=== PATIENT | female | born 1975 | race Caucasian/White ===

== ENCOUNTER 2016-08-20 14:19 | Emergency (ER) | payer BC, OTHER ==
[~2016-08-20] VITALS: Ht 160 cm; Wt 66.0 kg
[~2016-08-20 14:19] MED LIST: CIPR-255 PO; KETO2SHA EXT
[2016-08-20 14:25] VITALS: TEMP 36.8; Ht 160 cm; Wt 66.0 kg
[2016-08-20] MEDS ORDERED: SODIUM CHLORIDE 0.9% 1000ML 1,000 ML IV STA (14:36)
[2016-08-20] MEDS ORDERED: ONDANSETRON INJ 2 MG/ML 2 ML VIAL IV STA (14:36)
[2016-08-20] MEDS ORDERED: MoRPHine SULFATE 4 MG/ML 1 ML CARP\\VIAL IV STA (14:53)
[2016-08-20 14:54] LABS: BASO % 0.2 %; BASO ABS # 0.02 K/uL (0-0.2); COMPLETE YES; EOS % 0.8 %; HEMATOCRIT 39.9 % (37-47); IG% 0.2 %; LYMPH % 19.5 %; MEAN CELL VOLUME 89.1 fL (80-100); MEAN CORPUSCULAR HEMOGLOBIN 30.4 pg (25-34); MEAN CORPUSCULAR HGB CONC 34.1 g/dl (32-36); MEAN PLATELET VOLUME 10.6 fL (7.4-10.4); MONO % 7.4 %; NEUT % 71.9 %; PLATELET COUNT 255 K/uL (130-400); RED BLOOD COUNT 4.48 M/uL (4.2-5.4); WHITE BLOOD COUNT 12.32 K/uL (4.8-10.8)
[2016-08-20] MEDS ORDERED: MULT-506 PO (15:01)
[2016-08-20 15:09] LABS: PARTIAL THROMBOPLASTIN RATIO 1.1; PROTHROMBIN TIME (PATIENT) 10.2 SECONDS (9.0-12.0)
[2016-08-20 15:11] LABS: BUN/CREATININE RATIO 14.4 (10-20); CALCIUM 9.4 mg/dl (8.5-10.1); CREATININE 1.1 mg/dl (0.60-1.20); POTASSIUM 3.5 mmol/L (3.5-5.1)
[2016-08-20] MEDS ORDERED: LISI-461 PO (15:13)
[2016-08-20] MEDS ORDERED: CETI10TA84 PO (15:13)
[2016-08-20] MEDS ORDERED: HYDR12.56 PO (15:13)
[2016-08-20] MEDS ORDERED: OPTIRAY 320 IV PRN (15:15)
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
[2016-08-20 15:59] LABS: URINE APPEARANCE CLEAR (CLEAR); URINE BILIRUBIN NEG (NEG); URINE COLOR ORANGE; URINE NITRITE NEG (NEG); URINE SPECIFIC GRAVITY 1.012 (1.000-1.030); UROBILINOGEN NEG (NEG); ZZUR CULT IF INDIC CLEAN CATCH NO
[2016-08-20 16:09] LABS: MANUAL MICROSCOPIC REQUIRED? NO; REVIEW REQ? NO
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
[2016-08-20] MEDS ORDERED: KETOROLAC TROMETHAMINE 30 MG/ML VIAL IV STA (16:44)
[2016-08-20] MEDS ORDERED: CYCL10TA6 PO (16:51)
[2016-08-20 16:52] VITALS: PULSE 83; O2SAT 94
[2016-08-20 17:41] VITALS: BP 148/101
== END 2016-08-20 17:57 | disposition home or self-care (01) ==
LOC: EDBD 14:19 → C.EDD 14:23
DX: S09.90XA Unspecified injury of head, initial encounter (principal); S16.1XXA Strain of muscle, fascia and tendon at neck level, initial encounter; S30.1XXA Contusion of abdominal wall, initial encounter; V43.52XA Car driver injured in collision with other type car in traffic accident, initial encounter; J45.909 Unspecified asthma, uncomplicated; E11.9 Type 2 diabetes mellitus without complications; I10 Essential (primary) hypertension; Z80.9 Family history of malignant neoplasm, unspecified; Z83.3 Family history of diabetes mellitus; Z82.49 Family history of ischemic heart disease and other diseases of the circulatory system; Z79.899 Other long term (current) drug therapy

== ENCOUNTER 2016-12-07 13:39 | Emergency (ER) | payer OTHER ==
[~2016-12-07] VITALS: Ht 160 cm; Wt 68.6 kg
[~2016-12-07 13:39] MED LIST changes: -AMOX875T PO; -AZIT250T PO; -TRAM-10 PO
[2016-12-07 13:46] VITALS: TEMP 37.6; Ht 160 cm; Wt 68.6 kg
[2016-12-07] MEDS ORDERED: SODIUM CHLORIDE 0.9% 1000ML 1,000 ML IV STA ×2 (14:13→16:15)
[2016-12-07] MEDS ORDERED: MoRPHine SULFATE 4 MG/ML 1 ML CARP\\VIAL IV STA (14:13)
--- NOTE | 2016-12-07 14:18 | EMERGENCY ROOM VISIT NOTE ---
History Report prepared by Codi: Christy Porter Under the Supervision of: Dr. Edson Dumont M.D. First contact with patient: 13:51 Chief Complaint: ILLNESS Stated Complaint: PNEUMONIA WORSENING History of Present Illness The patient is a 41 year old white female who presents to the Emergency Room with complaints of a progressively worsening illness that began one week ago. She currently rates her discomfort as an 8/10 in severity describing it as a sharp pain. The patient reports a recent endoscopy, noting a history of EOE. She states that since then she has noticed a low-grade fever and a nonproductive cough. The patient states that today she had a chest x-ray that revealed a pneumonia. She states that she has noticed back pain, but now reports central chest pain. The patient reports difficulty swallowing and an increased cough since the procedure. She denies any congestion or sore throat. The patient reports a history of hypertension that is managed with medications. Source of History: patient Onset: one week ago Position: other (global) Symptom Intensity: 8/10 Quality: other (illness) Timing: other (persistent) Associated Symptoms: + fevers, + headache, + cough, + chest pain, + back pain, No sorethroat Note: Associated Symptoms: difficulty swallowing Review of Systems See HPI for pertinent positives and negatives. A total of ten systems were reviewed and were otherwise negative. Past Medical & Surgical Medical Problems: (1) Asthma, Unspecified (2) Diabetes (3) Hypertension Nos Family History Cancer Diabetes mellitus Heart disease Hypertension Lung disease Social History Smoking Status: Never Smoker Alcohol Use: occasionally Marital Status: Housing Status: lives with family Occupation Status: employed Current/Historical Medications Scheduled Amoxicillin & Pot Clavulanate (Augmentin 875-125 mg), 1 TAB PO BID Azithromycin (Zithromax), 250 MG PO DAILY Cetirizine (Zyrtec), 10 MG PO HS Hydrochlorothiazide (Hctz), 12.5 MG PO DAILY Lisinopril (Lisinopril), 10 MG PO DAILY Multivitamin (Multivitamin), 1 TAB PO DAILY Scheduled PRN Tramadol (Ultram), 50 MG PO Q4H PRN for Pain Allergies Coded Allergies: Aminoglycosides (Verified Allergy, Mild, HIVES, 04/12/12) Bacitracin (Verified Allergy, Mild, HIVES, 04/12/12) Neomycin (Verified Allergy, Mild, HIVES, 04/12/12) Polymyxin B (Verified Allergy, Mild, HIVES, 04/12/12) Prednisone (Verified Allergy, Unknown, THROAT SWELLS, 08/19/15) Physical Exam Vital Signs Date Time Temp Pulse Resp B/P (MAP) Pulse Ox O2 Delivery O2 Flow Rate FiO2 12/07/16 17:41 76 20 138/78 96 12/07/16 15:48 100 18 140/93 100 Room Air 12/07/16 14:38 98 Room Air 12/07/16 13:46 37.6 109 20 138/68 98 Room Air Physical Exam GENERAL: Awake, alert, well-appearing, NAD HENT: Normocephalic, atraumatic. EYES: Normal conjunctiva. Sclera non-icteric. NECK: Supple. No nuchal rigidity. FROM. RESPIRATORY: CTAB, no rhonchi, wheezing, crackles CARDIAC: Mild tachycardia, but regular rhythm, no MRG ABDOMEN: Soft, NTND, BS+ MSK: No chest wall TTP, no crepitus over the chest, no LE edema, no calf pain. NEURO: GCS 15, CN 2-12 intact, moves all 4s on command SKIN: No rash or jaundice noted. Medical Decision & Procedures ER Provider Diagnostic Interpretation: Radiology results as stated below per my review and radiologist interpretation: CHEST 2 VIEWS ROUTINE CLINICAL HISTORY: Fever. Recent EGD. COMPARISON STUDY: 12/07/2016 FINDINGS: The cardiac and mediastinal contours remain stable. There is a persistent area of consolidation within the right upper lobe. This is consistent with a pneumonia. There is been no significant change. The left lung is clear. There is no failure. There are no pleural effusions. There is no free intraperitoneal air.[ IMPRESSION: Persistent area of parenchymal consolidation within the right upper lobe, suspicious for a pneumonia. Imaging subsequent to treatment is recommended to document resolution Electronically signed by: Ian Chapin M.D. 12/07/2016 3:49 PM Dictated Date/Time: 12/07/2016 3:47 PM ABDOMEN 2 VIEWS CLINICAL HISTORY: 41 years-old Female presenting with recent EGD. TECHNIQUE: Upright and supine views of the abdomen were obtained. COMPARISON: CT from 08/20/2016. FINDINGS: No calcifications project over the kidneys or along the courses of the ureters. Mild gaseous distention of small bowel, likely postprocedural. No evidence of free intraperitoneal gas, pneumatosis, or portal venous gas. Lung bases clear. Osseous structures normal. IMPRESSION: 1. No acute intra-abdominal pathology. Electronically signed by: Cr Sorto M.D. 12/07/2016 3:49 PM Dictated Date/Time: 12/07/2016 3:48 PM Laboratory Results 12/07/16 14:23 Red Blood Count 3.99, Mean Corpuscular Volume 91.7, Mean Corpuscular Hemoglobin 31.8, Mean Corpuscular Hemoglobin Concent 34.7, Mean Platelet Volume 10.1, Neutrophils (%) (Auto) 73.0, Lymphocytes (%) (Auto) 13.0, Monocytes (%) (Auto) 13.0, Eosinophils (%) (Auto) 0.4, Basophils (%) (Auto) 0.3, Neutrophils # (Auto ) 5.40, Lymphocytes # (Auto) 0.96, Monocytes # (Auto) 0.96, Eosinophils # (Auto ) 0.03, Basophils # (Auto) 0.02 12/07/16 14:23 Test 12/07/16 14:23 12/07/16 15:02 12/07/16 15:14 White Blood Count 7.39 K/uL (4.8-10.8) Red Blood Count 3.99 M/uL (4.2-5.4) Hemoglobin 12.7 g/dL (12.0-16.0) Hematocrit 36.6 % (37-47) Mean Corpuscular Volume 91.7 fL (80-100) Mean Corpuscular Hemoglobin 31.8 pg (25-34) Mean Corpuscular Hemoglobin Concent 34.7 g/dl (32-36) Platelet Count 225 K/uL (130-400) Mean Platelet Volume 10.1 fL (7.4-10.4) Neutrophils (%) (Auto) 73.0 % Lymphocytes (%) (Auto) 13.0 % Monocytes (%) (Auto) 13.0 % Eosinophils (%) (Auto) 0.4 % Basophils (%) (Auto) 0.3 % Neutrophils # (Auto) 5.40 K/uL (1.4-6.5) Lymphocytes # (Auto) 0.96 K/uL (1.2-3.4) Monocytes # (Auto) 0.96 K/uL (0.11-0.59) Eosinophils # (Auto) 0.03 K/uL (0-0.5) Basophils # (Auto) 0.02 K/uL (0-0.2) RDW Standard Deviation 43.8 fL (36.4-46.3) RDW Coefficient of Variation 12.9 % (11.5-14.5) Immature Granulocyte % (Auto) 0.3 % Immature Granulocyte # (Auto) 0.02 K/uL (0.00-0.02) Anion Gap 7.0 mmol/L (3-11) Est Creatinine Clear Calc Drug Dose 93.0 ml/min Estimated GFR () 116.6 Estimated GFR (Non- 100.6 BUN/Creatinine Ratio 14.6 (10-20) Calcium Level 9.5 mg/dl (8.5-10.1) Total Bilirubin 0.3 mg/dl (0.2-1) Direct Bilirubin < 0.1 mg/dl (0-0.2) Aspartate Amino Transf (AST/SGOT) 22 U/L (15-37) Alanine Aminotransferase (ALT/SGPT) 34 U/L (12-78) Alkaline Phosphatase 91 U/L (45-117) Total Protein 8.6 gm/dl (6.4-8.2) Albumin 3.9 gm/dl (3.4-5.0) Lipase 154 U/L (73-393) Venous Blood pH 7.45 (7.36-7.41) Venous Blood Partial Pressure CO2 44 mmHg (38.0-50.0) Venous Blood Partial Pressure O2 19 mmHg Venous Blood HCO3 30 mmol/L Venous Blood Oxygen Saturation < 60.0 % Venous Blood Base Excess 5.0 mEq/L Bedside Lactic Acid Venous 0.78 mmol/L (0.90-1.70) Laboratory results reviewed by me Medications Administered Medications (Trade) Dose Ordered Sig/Oren Route Start Time Stop Time Status Last Admin Dose Admin Morphine Sulfate (MoRPHine SULFATE INJ) 4 mg NOW STAT IV 12/07/16 14:13 12/07/16 14:16 DC 12/07/16 15:14 4 MG Sodium Chloride 1,000 ml @ 999 mls/hr Q1H1M STAT IV 12/07/16 14:13 12/07/16 15:13 DC 12/07/16 15:14 999 MLS/HR Sodium Chloride 1,000 ml @ 999 mls/hr Q1H1M STAT IV 12/07/16 16:15 12/07/16 17:15 DC 12/07/16 16:20 999 MLS/HR Amoxicillin/ Clavulanate Potassium (Augmentin Tab) 875 mg ONE STAT PO 12/07/16 16:15 12/07/16 16:17 DC 12/07/16 16:24 875 MG Azithromycin (Zithromax Tab) 500 mg NOW ONCE PO 12/07/16 16:15 12/07/16 16:17 DC 12/07/16 16:24 500 MG ECG Indication: chest pain, SOB/dyspnea Rate (beats per minute): 101 Rhythm: sinus tachycardia Findings: Q waves (Inferior, lead 3), other (normal intervals, contiguous, no other ST-S changes) ED Course 1358: The patient was evaluated in room C8. A complete history and physical exam was performed. 1601: I reevaluated the patient and she is resting comfortably. I discussed the exam findings with her and I discussed the treatment plan. She verbalized complete understanding and agreement. She is ready to go home. Medical Decision Triage Nursing notes reviewed. The patient's presentation and history were concerning for bronchitis, pneumonia , aspiration, esophageal tear, perforation, mediastinitis. The patient is a 41 year old white female who presents to the Emergency Room with complaints of a progressively worsening illness that began one week ago. Patient was complaining of some mild shortness of breath chest pain as well as cough. Patient was noted to have a chest x-ray concerning for pneumonia. Patient was mildly tachycardic. Patient did have a recent EGD procedure was completed. Patient was evaluated with blood work in addition to chest x-ray and abdomen. Patient's lab work was fairly unremarkable. Patient EKG without signs of acute ischemic change. Furthermore, patient had negative films of the abdomen but still had a right upper lobe pneumonia. Given that the patient may have aspirated versus community-acquired pneumonia patient was treated with both Augmentin as well as Zithromax. Patient received additional fluids and her tachycardia improved. Believe infectious etiology of her tachycardia did be more likely rather than PE. We did discuss that if the patient has worsening shortness of breath or worsening symptoms patient should return for further evaluation. Patient tolerated by mouth at the bedside. Her improved. Patient was told to follow up as an outpatient. Patient was instructed follow- up discharge, and return precautions. Patient agreeable with plan of care patient was discharged home. Medication Reconcilliation Current Medication List: was personally reviewed by me Blood Pressure Screening Patient's blood pressure: Elevated blood pressure Blood pressure disposition: Elevated BP felt to be situational, Did not require urgent referral Impression Primary Impression: Pneumonia Additional Impressions: Chest pain SOB (shortness of breath) Scribe Attestation The scribe's documentation has been prepared under my direction and personally reviewed by me in its entirety. I confirm that the note above accurately reflects all work, treatment, procedures, and medical decision making performed by me. Departure Information Dispostion Home / Self-Care Prescriptions Tramadol (Ultram) 50 Mg Tab 50 MG PO Q4H Y for Pain, #14 TAB Prov: Edson Dumont M.D. 12/07/16 Azithromycin (Zithromax) 250 Mg Tab 250 MG PO DAILY, #4 TAB Prov: Edson Dumont M.D. 12/07/16 Amoxicillin & Pot Clavulanate (Augmentin 875-125 mg) 1 Tab Tab 1 TAB PO BID, #14 TAB Prov: Edson Dumont M.D. 12/07/16 Referrals No Doctor, Assigned (PCP) Forms HOME CARE DOCUMENTATION FORM, IMPORTANT VISIT INFORMATION, WORK / SCHOOL INSTRUCTIONS Patient Instructions Coughing Techniques, ED Pneumonia Adult, My [facility], Techniques Cough Airway Clear Additional Instructions Please return to the emergency department if you have worsening or recurrent symptoms not amenable to at-home treatment. Please call for a follow-up appointment with her primary care physician. Please your medications as prescribed. If you have other concerns and/or complaints please feel free to also call your primary care physician's office or return the ED for further evaluation, management, and treatment. Between 4 and 800 mg of ibuprofen every 6 hours but no more than 3200 mg in a 24 -hour period. Please take with food as it may cause an upset stomach. He may take 1000 mg of Tylenol or acetaminophen every 6 hours. Do not take more than 4 g in a 24-hour period. Work Instructions Return To Work: 2 days Specific Date: 12/09/16 Problem Qualifiers Primary Impression: Pneumonia Pneumonia type: due to unspecified organism Laterality: right Lung location : upper lobe of lung Qualified Codes: J18.1 - Lobar pneumonia, unspecified organism Additional Impressions: Chest pain Chest pain type: unspecified Qualified Codes: R07.9 - Chest pain, unspecified
[2016-12-07 14:29] LABS: BASO % 0.3 %; BASO ABS # 0.02 K/uL (0-0.2); COMPLETE YES; EOS % 0.4 %; HEMATOCRIT 36.6 % (37-47); IG% 0.3 %; LYMPH ABS # 0.96 K/uL (1.2-3.4); MEAN CELL VOLUME 91.7 fL (80-100); MEAN CORPUSCULAR HEMOGLOBIN 31.8 pg (25-34); MEAN CORPUSCULAR HGB CONC 34.7 g/dl (32-36); MEAN PLATELET VOLUME 10.1 fL (7.4-10.4); PLATELET COUNT 225 K/uL (130-400); RED BLOOD COUNT 3.99 M/uL (4.2-5.4); WHITE BLOOD COUNT 7.39 K/uL (4.8-10.8)
[2016-12-07 14:37] LABS: ALT/SGPT 34 U/L (12-78); BLOOD UREA NITROGEN 11 mg/dl (7-18); BUN/CREATININE RATIO 14.6 (10-20); CALCIUM 9.5 mg/dl (8.5-10.1); CARBON DIOXIDE 28 mmol/L (21-32); CHLORIDE 100 mmol/L (98-107); CREATININE 0.74 mg/dl (0.60-1.20); GLUCOSE 102 mg/dl (70-99); POTASSIUM 3.5 mmol/L (3.5-5.1); SODIUM 135 mmol/L (136-145)
[2016-12-07 14:38] VITALS: O2SAT 98
[2016-12-07 14:40] LABS: ALKALINE PHOSPHATASE 91 U/L (45-117); AST/SGOT 22 U/L (15-37)
[2016-12-07 15:13] LABS: VEN BLD GAS O2 SATURATION < 60.0 %; VENOUS BLOOD GAS PCO2 44 mmHg (38.0-50.0); VENOUS BLOOD GAS PO2 19 mmHg
--- NOTE | 2016-12-07 15:50 | DIAGNOSTIC IMAGING REPORT ---
CHEST 2 VIEWS ROUTINE CLINICAL HISTORY: Fever. Recent EGD. COMPARISON STUDY: 12/07/2016 FINDINGS: The cardiac and mediastinal contours remain stable. There is a persistent area of consolidation within the right upper lobe. This is consistent with a pneumonia. There is been no significant change. The left lung is clear. There is no failure. There are no pleural effusions. There is no free intraperitoneal air.[ IMPRESSION: Persistent area of parenchymal consolidation within the right upper lobe, suspicious for a pneumonia. Imaging subsequent to treatment is recommended to document resolution Electronically signed by: Ian Chapin M.D. 12/07/2016 3:49 PM Dictated Date/Time: 12/07/2016 3:47 PM
--- NOTE | 2016-12-07 15:51 | DIAGNOSTIC IMAGING REPORT ---
ABDOMEN 2 VIEWS CLINICAL HISTORY: 41 years-old Female presenting with recent EGD. TECHNIQUE: Upright and supine views of the abdomen were obtained. COMPARISON: CT from 08/20/2016. FINDINGS: No calcifications project over the kidneys or along the courses of the ureters. Mild gaseous distention of small bowel, likely postprocedural. No evidence of free intraperitoneal gas, pneumatosis, or portal venous gas. Lung bases clear. Osseous structures normal. IMPRESSION: 1. No acute intra-abdominal pathology. Electronically signed by: Cr Sorto M.D. 12/07/2016 3:49 PM Dictated Date/Time: 12/07/2016 3:48 PM
[2016-12-07] MEDS ORDERED: AZITHROMYCIN 250 MG TAB PO ONE (16:15)
[2016-12-07] MEDS ORDERED: AMOXICILLIN/CLAVULANATE TAB 875 MG TAB PO STA (16:15)
[2016-12-07] MEDS ORDERED: TRAM-10 PO (16:21)
[2016-12-07] MEDS ORDERED: AMOX875T PO (16:21)
[2016-12-07] MEDS ORDERED: AZIT250T PO (16:21)
[2016-12-07 17:41] VITALS: BP 138/78; PULSE 76; O2SAT 96
== END 2016-12-07 17:46 | disposition home or self-care (01) ==
LOC: C.EDB 13:42 → C.EDC 17:46
DX: J18.1 Lobar pneumonia, unspecified organism (principal); R07.9 Chest pain, unspecified; R00.0 Tachycardia, unspecified; M54.9 Dorsalgia, unspecified; I10 Essential (primary) hypertension; E11.9 Type 2 diabetes mellitus without complications; J45.909 Unspecified asthma, uncomplicated; Z79.899 Other long term (current) drug therapy; Z82.49 Family history of ischemic heart disease and other diseases of the circulatory system; Z83.3 Family history of diabetes mellitus; Z83.6 Family history of other diseases of the respiratory system

== ENCOUNTER → 2016-12-07 | Outpatient (CLI) | payer OTHER ==
[~2016-12-07] MED LIST changes: +AMOX875T PO; +AZIT250T PO; +CETI10TA84 PO; -CIPR-255 PO; +HYDR12.56 PO; -KETO2SHA EXT; +LISI-461 PO; +MULT-506 PO; +TRAM-10 PO
--- NOTE | 2016-12-07 09:25 | DIAGNOSTIC IMAGING REPORT ---
CHEST 2 VIEWS ROUTINE HISTORY: Atypical CHEST PAIN, S/P ESOPH DILATION COMPARISON: Chest 10/16/2015. FINDINGS: No pneumothorax. The heart is normal in size. The left lung is clear. No pleural effusions. There is a 7.1 x 2.8 cm focus of consolidation within the anterior segment of the right upper lobe. This measures a small focus of central cavitation. IMPRESSION: A 7.1 x 2.8 cm cavitary focus within the right upper lobe. This could be due to an infectious process possibly secondary to aspiration, tuberculosis, or neoplastic process. Follow-up is recommended to ensure resolution. Pulmonary consultation should also be considered. Electronically signed by: Rodolfo Barlow M.D. 12/07/2016 9:24 AM Dictated Date/Time: 12/07/2016 9:20 AM
== END | disposition home or self-care (01) ==
LOC: C.RAD 08:51
PROVIDERS: ATTEND Internal Medicine Gastroenterology
DX: R07.9 Chest pain, unspecified (principal); R91.8 Other nonspecific abnormal finding of lung field

== ENCOUNTER 2016-12-08 18:54 | Emergency (ER) | payer OTHER ==
[~2016-12-08] VITALS: Ht 160 cm; Wt 71.3 kg
[~2016-12-08 18:54] MED LIST changes: +AMOX875T PO; +AZIT250T PO; +TRAM-10 PO
[2016-12-08 18:59] VITALS: TEMP 37.3; Ht 160 cm; Wt 71.3 kg
[2016-12-08] MEDS ORDERED: PIPERACILLIN/TAZOBACTAM 3.375 GM/100ML D5W IV STA (19:46)
[2016-12-08] MEDS ORDERED: OPTIRAY 320 IV PRN (20:00)
[2016-12-08 20:34] LABS: BASO % 0.3 %; BASO ABS # 0.02 K/uL (0-0.2); COMPLETE YES; EOS % 1.4 %; HEMATOCRIT 33.6 % (37-47); IG% 0.2 %; LYMPH % 21.7 %; LYMPH ABS # 1.28 K/uL (1.2-3.4); MEAN CELL VOLUME 91.6 fL (80-100); MEAN CORPUSCULAR HEMOGLOBIN 31.1 pg (25-34); MEAN CORPUSCULAR HGB CONC 33.9 g/dl (32-36); MONO % 12.9 %; NEUT % 63.5 %; PLATELET COUNT 209 K/uL (130-400); RED BLOOD COUNT 3.67 M/uL (4.2-5.4)
[2016-12-08 20:41] LABS: INR 0.9 (0.9-1.1); PARTIAL THROMBOPLASTIN RATIO 1.2; PROTHROMBIN TIME (PATIENT) 9.9 SECONDS (9.0-12.0)
[2016-12-08 20:48] VITALS: O2SAT 97
[2016-12-08 20:53] LABS: ALT/SGPT 29 U/L (12-78); AST/SGOT 18 U/L (15-37); BLOOD UREA NITROGEN 10 mg/dl (7-18); BUN/CREATININE RATIO 12.9 (10-20); CALCIUM 8.7 mg/dl (8.5-10.1); CARBON DIOXIDE 27 mmol/L (21-32); CHLORIDE 107 mmol/L (98-107); CREATININE 0.81 mg/dl (0.60-1.20); GLUCOSE 103 mg/dl (70-99); POTASSIUM 3.8 mmol/L (3.5-5.1); SODIUM 139 mmol/L (136-145)
[2016-12-08 20:58] LABS: ALKALINE PHOSPHATASE 78 U/L (45-117)
--- NOTE | 2016-12-08 21:42 | DIAGNOSTIC IMAGING REPORT ---
CHEST CTA for PULMONARY ARTERIES CT DOSE: 357.14 mGy.cm HISTORY: Atypical chest pain. TECHNIQUE: Multiaxial CT images of the chest were performed following the intravenous administration of contrast to evaluate the pulmonary arteries. Maximal intensity projection images were also obtained. A dose lowering technique was utilized adhering to the principles of ALARA. COMPARISON STUDY: Chest 12/07/2016. Chest CT 08/20/2016. FINDINGS: Normal caliber thoracic aorta with no evidence for dissection. The heart is normal in size. Trace right pleural effusion. No filling defects within the pulmonary arteries to suggest pulmonary embolus. No pneumothorax. Small groundglass densities within the lung bases posteriorly. This favors mild dependent change. Dense consolidation within the lateral aspect of the right upper lobe with associated air bronchograms. This likely represents a pneumonia. The central airways are patent. No fractures within the visualized osseous structures. Bilateral breast augmentation. No significant mediastinal or hilar lymphadenopathy. The visualized liver, spleen, and adrenal glands are unremarkable. IMPRESSION: 1. No evidence for pulmonary embolus. 2. Trace right pleural effusion. 3. Focal consolidation within the right upper lobe with associated air bronchograms. This likely represents a pneumonia. One to 2 month chest x-ray follow-up is recommended to ensure resolution. Electronically signed by: Rodolfo Barlow M.D. 12/08/2016 9:41 PM Dictated Date/Time: 12/08/2016 9:31 PM
--- NOTE | 2016-12-08 22:30 | EMERGENCY ROOM VISIT NOTE ---
History Report prepared by Codi: Christy Porter Under the Supervision of: Dr. West Renteria D.O. First contact with patient: 19:36 Chief Complaint: FEVER Stated Complaint: FEVER History of Present Illness The patient is a 41 year old female who presents to the Emergency Room with complaints of a persistent fever that began a week and a half ago. She currently rates her discomfort as a 6/10 in severity. The patient states that last Tuesday she had an EGD and states that the next day she developed a low- grade fever. She states that Tuesday her fever worsened, and states that she developed a persistent cough. The patient additionally notes that she developed a sharp back pain, but states that the pain radiated to her chest and denies any current back pain. She states that she has been experiencing shortness of breath. The patient states that she was evaluated in the emergency department yesterday after she was diagnosed with pneumonia earlier in the morning. She states that her cough worsens with lying flat. The patient states that she has been taking Ibuprofen all day, noting that her last dose was at 1645. She states that she has measured her fever up to 102.5 degrees Fahrenheit. The patient states that her headache is worse today than what it was yesterday. She states that her cough, shortness of breath, and central chest pain have persisted. The patient additionally reports diaphoresis today. She states that she took Tramadol for chest pain this afternoon that did not alleviate her pain. Source of History: patient Onset: a week and a half ago Position: other (global) Symptom Intensity: 6/10 Quality: other (fever) Timing: other (persistent) Associated Symptoms: + headache, + diaphoresis, + cough, + chest pain, + SOB , No back pain Review of Systems See HPI for pertinent positives & negatives. A total of 10 systems reviewed and were otherwise negative. Past Medical & Surgical Medical Problems: (1) Asthma, Unspecified (2) Diabetes (3) Hypertension Nos Family History Cancer Diabetes mellitus Heart disease Hypertension Lung disease Social History Smoking Status: Former Smoker Alcohol Use: occasionally Marital Status: Housing Status: lives with family Occupation Status: employed Current/Historical Medications Scheduled Amoxicillin & Pot Clavulanate (Augmentin 875-125 mg), 1 TAB PO BID Azithromycin (Zithromax), 250 MG PO DAILY Cetirizine (Zyrtec), 10 MG PO HS Hydrochlorothiazide (Hctz), 12.5 MG PO DAILY Lisinopril (Lisinopril), 10 MG PO DAILY Multivitamin (Multivitamin), 1 TAB PO DAILY Scheduled PRN Tramadol (Ultram), 50 MG PO Q4H PRN for Pain Allergies Coded Allergies: Aminoglycosides (Verified Allergy, Mild, HIVES, 12/08/16) Bacitracin (Verified Allergy, Mild, HIVES, 12/08/16) Neomycin (Verified Allergy, Mild, HIVES, 12/08/16) Polymyxin B (Verified Allergy, Mild, HIVES, 12/08/16) Prednisone (Verified Allergy, Unknown, THROAT SWELLS, 12/08/16) Physical Exam Vital Signs Date Time Temp Pulse Resp B/P (MAP) Pulse Ox O2 Delivery O2 Flow Rate FiO2 12/08/16 22:50 89 18 130/89 100 12/08/16 20:48 97 Room Air 12/08/16 20:47 90 18 126/91 97 Room Air 12/08/16 20:38 93 12/08/16 18:59 37.3 97 20 144/88 96 Room Air Physical Exam CONSTITUTIONAL/VITAL SIGNS: Reviewed / noted above. GENERAL: Non-toxic in appearance. INTEGUMENTARY: Warm, dry, and [place]. HEAD: Normocephalic. EYES: without scleral icterus or trauma. ENT/OROPHARYNX: clear and moist. LYMPHADENOPATHY/NECK: Is supple without lymphadenopathy or meningismus. RESPIRATORY: Lungs clear and equal. CARDIOVASCULAR: Regular rate and rhythm. GI/ABDOMEN: Soft and nontender. No organomegaly or pulsatile mass. No rebound or guarding. Normal bowel sounds. EXTREMITIES: Warm and well perfused. BACK: No CVA tenderness. NEUROLOGICAL: Intact without focal deficits. PSYCHIATRIC: normal affect. MUSCULOSKELETAL: Normally developed with good muscle tone. Medical Decision & Procedures ER Provider Diagnostic Interpretation: CT results as stated below per my review and radiologist interpretation: CHEST CTA for PULMONARY ARTERIES CT DOSE: 357.14 mGy.cm HISTORY: Atypical chest pain. TECHNIQUE: Multiaxial CT images of the chest were performed following the intravenous administration of contrast to evaluate the pulmonary arteries. Maximal intensity projection images were also obtained. A dose lowering technique was utilized adhering to the principles of ALARA. COMPARISON STUDY: Chest 12/07/2016. Chest CT 08/20/2016. FINDINGS: Normal caliber thoracic aorta with no evidence for dissection. The heart is normal in size. Trace right pleural effusion. No filling defects within the pulmonary arteries to suggest pulmonary embolus. No pneumothorax. Small groundglass densities within the lung bases posteriorly. This favors mild dependent change. Dense consolidation within the lateral aspect of the right upper lobe with associated air bronchograms. This likely represents a pneumonia. The central airways are patent. No fractures within the visualized osseous structures. Bilateral breast augmentation. No significant mediastinal or hilar lymphadenopathy. The visualized liver, spleen, and adrenal glands are unremarkable. IMPRESSION: 1. No evidence for pulmonary embolus. 2. Trace right pleural effusion. 3. Focal consolidation within the right upper lobe with associated air bronchograms. This likely represents a pneumonia. One to 2 month chest x-ray follow-up is recommended to ensure resolution. Electronically signed by: Rodolfo Barlow M.D. 12/08/2016 9:41 PM Dictated Date/Time: 12/08/2016 9:31 PM Laboratory Results 12/08/16 20:13 Red Blood Count 3.67, Mean Corpuscular Volume 91.6, Mean Corpuscular Hemoglobin 31.1, Mean Corpuscular Hemoglobin Concent 33.9, Mean Platelet Volume 10.0, Neutrophils (%) (Auto) 63.5, Lymphocytes (%) (Auto) 21.7, Monocytes (%) (Auto) 12.9, Eosinophils (%) (Auto) 1.4, Basophils (%) (Auto) 0.3, Neutrophils # (Auto ) 3.75, Lymphocytes # (Auto) 1.28, Monocytes # (Auto) 0.76, Eosinophils # (Auto ) 0.08, Basophils # (Auto) 0.02 12/08/16 20:13 Test 12/08/16 20:13 White Blood Count 5.90 K/uL (4.8-10.8) Red Blood Count 3.67 M/uL (4.2-5.4) Hemoglobin 11.4 g/dL (12.0-16.0) Hematocrit 33.6 % (37-47) Mean Corpuscular Volume 91.6 fL (80-100) Mean Corpuscular Hemoglobin 31.1 pg (25-34) Mean Corpuscular Hemoglobin Concent 33.9 g/dl (32-36) Platelet Count 209 K/uL (130-400) Mean Platelet Volume 10.0 fL (7.4-10.4) Neutrophils (%) (Auto) 63.5 % Lymphocytes (%) (Auto) 21.7 % Monocytes (%) (Auto) 12.9 % Eosinophils (%) (Auto) 1.4 % Basophils (%) (Auto) 0.3 % Neutrophils # (Auto) 3.75 K/uL (1.4-6.5) Lymphocytes # (Auto) 1.28 K/uL (1.2-3.4) Monocytes # (Auto) 0.76 K/uL (0.11-0.59) Eosinophils # (Auto) 0.08 K/uL (0-0.5) Basophils # (Auto) 0.02 K/uL (0-0.2) RDW Standard Deviation 43.8 fL (36.4-46.3) RDW Coefficient of Variation 13.0 % (11.5-14.5) Immature Granulocyte % (Auto) 0.2 % Immature Granulocyte # (Auto) 0.01 K/uL (0.00-0.02) Prothrombin Time 9.9 SECONDS (9.0-12.0) Prothromb Time International Ratio 0.9 (0.9-1.1) Activated Partial Thromboplast Time 30.1 SECONDS (21.0-31.0) Partial Thromboplastin Ratio 1.2 Anion Gap 5.0 mmol/L (3-11) Est Creatinine Clear Calc Drug Dose 86.5 ml/min Estimated GFR () 104.6 Estimated GFR (Non- 90.2 BUN/Creatinine Ratio 12.9 (10-20) Calcium Level 8.7 mg/dl (8.5-10.1) Total Bilirubin 0.3 mg/dl (0.2-1) Direct Bilirubin < 0.1 mg/dl (0-0.2) Aspartate Amino Transf (AST/SGOT) 18 U/L (15-37) Alanine Aminotransferase (ALT/SGPT) 29 U/L (12-78) Alkaline Phosphatase 78 U/L (45-117) Total Creatine Kinase 113 U/L (26-192) Creatine Kinase MB < 0.5 ng/ml (0.5-3.6) Creatine Kinase MB Ratio (0-3.0) Troponin I 0.026 ng/ml (0-0.045) Total Protein 7.3 gm/dl (6.4-8.2) Albumin 3.2 gm/dl (3.4-5.0) Lipase 124 U/L (73-393) Laboratory results as stated above per my review. Medications Administered Medications (Trade) Dose Ordered Sig/Oren Route Start Time Stop Time Status Last Admin Dose Admin Piperacillin Sod/ Tazobactam Sod (Zosyn Iv) 3.375 gm NOW STAT IV 12/08/16 19:46 12/08/16 19:52 DC 12/08/16 20:44 3.375 GM ECG Indication: chest pain, SOB/dyspnea Rate (beats per minute): 92 Rhythm: normal sinus Findings: no acute ischemic change, no ectopy ED Course 1943: Previous medical records were reviewed. The patient was evaluated in room B6. A complete history and physical examination was performed. 1945: Ordered Zosyn IV 3.375 gm IV. 2232: I reevaluated the patient and she is doing well. I discussed all the exam findings with her and I discussed the treatment plan. She verbalized complete understanding and agreement. She is ready to go home. Medical Decision Differentials considered include acute myocardial infarction, acute coronary syndrome, myocarditis, pericarditis, pericardial effusions /tamponade, esophageal perforation, thoracic aortic dissection, pulmonary embolism, pneumonia, pneumothorax, pancreatitis, shingles, acute cholecystitis, and perforated abdominal viscus. This is a 41-year-old female who presents the ED with a chief complaint of continued fever and retrosternal chest pain as well as cough. The patient states that her symptoms started a week and a half ago. She was diagnosed with pneumonia yesterday. She was started on Zithromax and Augmentin. She states that she has not improved today. She came in for reevaluation. Her symptoms started after an EGD on November 29. Her main symptoms started on Tuesday with a fever and a cough. The patient's exam was unremarkable. She is no distress. Oxygen saturations are normal. She is afebrile. EKG shows a normal sinus rhythm. CBC and complete metabolic panel were normal. CT scan of the chest revealed a right upper lobe pneumonia. The patient was given IV Zosyn. She is felt to be stable for discharge and continued outpatient antibiotics. Medication Reconcilliation Current Medication List: was personally reviewed by me Blood Pressure Screening Patient's blood pressure: Normal blood pressure Blood pressure disposition: Did not require urgent referral Impression Primary Impression: Pneumonia Scribe Attestation The scribe's documentation has been prepared under my direction and personally reviewed by me in its entirety. I confirm that the note above accurately reflects all work, treatment, procedures, and medical decision making performed by me. Departure Information Dispostion Home / Self-Care Referrals Carlitos Ruiz D.O. (PCP) Forms HOME CARE DOCUMENTATION FORM, IMPORTANT VISIT INFORMATION Patient Instructions My [facility] Additional Instructions Continue antibiotics prescribed yesterday. Anticipate slow improvement of symptoms after at least 2-3 days worth of antibiotics. Continue Tylenol or Motrin as needed for pain and fever. Follow-up with your doctor in 2 or 3 days for recheck. Return for significant worsening or new symptoms.
[2016-12-08 22:50] VITALS: BP 130/89; PULSE 89; O2SAT 100
== END 2016-12-08 22:51 | disposition home or self-care (01) ==
LOC: C.EDB 18:56
DX: J18.9 Pneumonia, unspecified organism (principal); J45.909 Unspecified asthma, uncomplicated; E11.9 Type 2 diabetes mellitus without complications; I10 Essential (primary) hypertension; Z83.3 Family history of diabetes mellitus; Z82.49 Family history of ischemic heart disease and other diseases of the circulatory system; Z87.891 Personal history of nicotine dependence

== ENCOUNTER → 2017-04-05 | Outpatient (CLI) | payer OTHER ==
[~2017-04-05] MED LIST changes: -AMOX875T PO
--- NOTE | 2017-04-06 15:59 | MAMMOGRAPHY REPORT ---
BILATERAL DIGITAL SCREENING MAMMOGRAM TOMOSYNTHESIS WITH CAD: 04/05/2017 CLINICAL HISTORY: Routine screening. Patient reported intermittent focal pain in the right breast fo r several months during the screening examination. TECHNIQUE: Bilateral CC and MLO views of the breast with and without implant displacement views were obtained. Tomosynthesis was also performed on the implant displaced views. Current study was also evaluated with a Computer Aided Detection (CAD) system. COMPARISON: Comparison is made to exams dated: 04/01/2016 mammogram, 01/28/2015 mammogram - [facility], and 11/19/2011 mammogram - [facility]. BREAST COMPOSITION: The tissue of both breasts is heterogeneously dense, which may obscure small mas ses. FINDINGS: Bilateral subpectoral silicone implants are stable comparing to prior exams. A square-shap ed pain marker overlies the inferior right breast, denoting an area of pain pointed out by the patien t. There are benign-appearing calcifications near the periareolar surgical scars. No obvious new ma ss, architectural distortion or cluster of suspicious microcalcifications is seen. IMPRESSION: ACR BI-RADS CATEGORY 1: NEGATIVE 1. Stable bilateral mammograms, without mammographic evidence of malignancy. 2. However, the patient reported focal pain during this screening examination and standard of care i s mammogram plus ultrasound. Therefore, clinical follow-up is recommended and if this is a new sympt om, additional right breast targeted ultrasound is recommended. The patient will receive written notification of the results. Approximately 10% of breast cancers are not detected with mammography. A negative mammographic report should not delay biopsy if a clinically suggestive mass is present. Missy Oconnor M.D. ay/:04/05/2017 15:20:19 Interactive Multimedia Designer: Shahnaz ERICKSON(Kyung)(Kiet), [facility] letter sent: Normal 1/2 BI-RADS Code: ACR BI-RADS Category 1: Negative
== END | disposition home or self-care (01) ==
LOC: C.MAMM 07:53
PROVIDERS: ATTEND Obstetrics & Gynecology
DX: Z12.31 Encounter for screening mammogram for malignant neoplasm of breast (principal)

== ENCOUNTER → 2017-05-16 | Day surgery (SDC) | payer OTHER ==
[2017-05-12 14:21] VITALS: BMI 27.0
--- NOTE | 2017-05-12 14:53 | PAT Medication Instructions ---
Service Date May 12, 2017. Current Home Medication List Acetaminophen Tab (Tylenol), 650 MG PO PRN Cetirizine (Zyrtec), 10 MG PO HS Hydrochlorothiazide (Hctz), 12.5 MG PO QAM Ibuprofen (Advil), 400 MG PO PRN Lisinopril (Lisinopril), 10 MG PO QAM Multivitamin (Multivitamin), 1 TAB PO QAM Omeprazole (Omeprazole), 1 TAB PO QAM Vitamins C & E (Vitamin C), 1 TAB PO QAM [Black Radish], 1 TAB PO QAM [Simplex Otc], 1 TAB PO QAM [Thymex], 1 TAB PO QAM [Vitamin B], 1 TAB PO QAM Medication Instructions For Your Scheduled Surgery - Hold the following medications as f 05/12/17: [Black Radish], 1 TAB PO QAM [Simplex Otc], 1 TAB PO QAM [Thymex], 1 TAB PO QAM - Hold the following medications the morning of surgery: Hydrochlorothiazide (Hctz), 12.5 MG PO QAM Lisinopril (Lisinopril), 10 MG PO QAM Multivitamin (Multivitamin), 1 TAB PO QAM Ibuprofen (Advil), 400 MG PO PRN (otherwise okay to continue per surgeon) [Vitamin B], 1 TAB PO QAM Vitamins C (Vitamin C), 1 TAB PO QAM - Take the following medications the morning of surgery with a sip of water OTHERWISE NOTHING TO EAT OR DRINK AFTER MIDNIGHT: Acetaminophen Tab (Tylenol), 650 MG PO PRN (may take if needed up to 4 hours prior to surgery) Omeprazole (Omeprazole), 1 TAB PO QAM - Take the following medications as scheduled the night before surgery: Acetaminophen Tab (Tylenol), 650 MG PO PRN Cetirizine (Zyrtec), 10 MG PO HS If you have any questions please call us at [phone] or [phone] or [phone]
[2017-05-12 15:22] LABS: BASO % 0.1 %; BASO ABS # 0.01 K/uL (0-0.2); HEMOGLOBIN 12.5 g/dL (12.0-16.0); IG# 0.02 K/uL (0.00-0.02); LYMPH % 22.9 %; LYMPH ABS # 2.26 K/uL (1.2-3.4); MEAN CELL VOLUME 90.9 fL (80-100); MEAN CORPUSCULAR HEMOGLOBIN 31.6 pg (25-34); MEAN CORPUSCULAR HGB CONC 34.7 g/dl (32-36); MEAN PLATELET VOLUME 10.6 fL (7.4-10.4); MONO % 6.8 %; MONO ABS # 0.67 K/uL (0.11-0.59); NEUT ABS # 6.83 K/uL (1.4-6.5); PLATELET COUNT 282 K/uL (130-400); RED CELL DISTRIBUTION WIDTH CV 12.9 % (11.5-14.5); RED CELL DISTRIBUTION WIDTH SD 42.7 fL (36.4-46.3); WHITE BLOOD COUNT 9.89 K/uL (4.8-10.8)
[2017-05-12 16:19] LABS: CALCIUM 8.8 mg/dl (8.5-10.1); CREATININE 0.62 mg/dl (0.60-1.20); POTASSIUM 3.6 mmol/L (3.5-5.1)
[~2017-05-16] VITALS: Ht 160 cm; Wt 69.3 kg
[~2017-05-16] MED LIST changes: +ACET325T96 PO; +ATROPINE SULFATE 0.1 MG/ML 5ML SYR IV PRN; -AZIT250T PO; +EpHEDrine SULFATE INJ 50 MG/ML AMP IV PRN; +FENTANYL CITRATE INJ 50 MCG/1 ML 2 ML VIAL ONE; +IBUP-1050 PO; +KETOROLAC TROMETHAMINE 30 MG/ML VIAL IV ONE; +KETOROLAC TROMETHAMINE 30 MG/ML VIAL IV. PRN; +KETOROLAC TROMETHAMINE 30 MG/ML VIAL ONE; +LACTATED RINGER'S 1000ML 1,000 ML IV SCH; +LIDOCAINE HCL 2% 2 ML VIAL (20MG/ML) ONE; +MIDAZOLAM HCL 1 MG/ML 2ML VIAL ONE; +OMEP20TA PO; +ONDANSETRON INJ 2 MG/ML 2 ML VIAL IV PRN; +ONDANSETRON INJ 2 MG/ML 2 ML VIAL ONE; +OXYCODONE/ACETAMINOPHEN 5-325 TAB PO PRN; +PROMETHAZINE HCL INJ 25 MG in SODIUM CHLORIDE 0.9% 50ML 50 ML IV PRN; +PROPOFOL IV EMULSION 10 MG/ML 20 ML VIAL IV ONE; +SODIUM CHLORIDE 0.9% 1000ML 1,000 ML IV SCH; +THYMEX PO; -TRAM-10 PO; +VITACAP26 PO; +VITAMIN B PO; +[UNRECOGNIZED DRUG - OTHER] PO; +[UNRECOGNIZED DRUG - OTHER] PO
[2017-05-16 05:55] VITALS: BP 127/88; PULSE 83; TEMP 36.3; O2SAT 98; Ht 160 cm; Wt 69.3 kg
--- NOTE | 2017-05-16 07:22 | History & Physical Bridge Note ---
H&P Re-Evaluation Bridge Note: I have examined the patient, reviewed the History & Physical and in the interval since the performance of the History & Physical I have noted the following changes of clinical significance: No changes noted
--- NOTE | 2017-05-16 08:14 | [facility] Post Operative Brief Note ---
Immediate Operative Summary Operative Date May 16, 2017. Pre-Operative Diagnosis Thickened endometrium Post-Operative Diagnosis Same Procedure(s) Performed Hysteroscopy Dilation Curettage Surgeon Dr Horn [employer] Clerk Surgeon(s) none Estimated Blood Loss 10ml Findings See Below Thickened endometrial lining, no polyp noted. Bilateral tubal ostia seen. Fluids (cc crystalloids) 800cc Specimens A. endometrial curretting Drains bladder emptied prior to procedure, 400cc Anesthesia Type General Complication(s) none Disposition Accompanied Pt To Recover: no Disposition: Recovery Room / PACU
--- NOTE | 2017-05-16 08:32 | Anesthesiology Progress Note ---
Anesthesia Post Op Note Date & Time May 16, 2017 at 08:32 Vital Signs Pain Intensity: 0 Vital Signs Past 12 Hours Date Time Temp Pulse Resp B/P (MAP) Pulse Ox O2 Delivery O2 Flow Rate FiO2 05/16/17 05:55 36.3 83 20 127/88 (101) 98 Room Air Notes Mental Status: alert / awake / arousable, participated in evaluation Pt Amnestic to Procedure: Yes Nausea / Vomiting: adequately controlled Pain: adequately controlled Airway Patency, RR, SpO2: stable & adequate BP & HR: stable & adequate Hydration State: stable & adequate Anesthetic Complications: no major complications apparent
--- NOTE | 2017-05-16 08:34 | Discharge Instructions ---
Discharge Instructions Date of Service May 16, 2017. Visit Reason for Visit: Irregular Menstrual Cycle Discharge Discharge Diagnosis / Problem: thickened endometrial lining Discharge Goals Goal(s): Diagnostic testing Activity Recommendations Activity Limitations: per Instructions/Follow-up section Anesthesia . Post Anesthesia Instructions: If you have had General Anesthesia or IV Sedation: * Do not drive today. * Resume driving when surgeon permits. * Do not make important decisions or sign legal documents today. * Call surgeon for: 1. Temperature elevations greater than 101 degrees F. 2. Uncontrollable pain. 3. Excessive bleeding. 4. Persistent nausea and vomiting. 5. Medication intolerance (nausea, vomiting or rash). * For nausea and vomiting use only clear liquids such as: tea, soda, bouillon until nausea subsides, then gradually increase diet as tolerated. * If you have any concerns or questions, call your surgeon's office. If physician is unavailable and it is an emergency, call 911 or go to the nearest emergency room. . Instructions / Follow-Up Instructions / Follow-Up ACTIVITY RECOMMENDATIONS: * Avoid tampons, douching, hot tubs, pools, and intercourse until bleeding has stopped. * May shower as usual. * No strenuous activity for 24-48 hours. After 24-48 hours, you may do anything you feel like doing (driving and sports are okay). SPECIAL CARE INSTRUCTIONS: Special Diet: * Mild nausea may occur in the immediate post-operative period. * Take clear liquids such as tea, cola or bouillon until all nausea has subsided; you may then resume your normal diet. Special Care: * Light bleeding and vaginal spotting can last from a few days to 3-4 weeks. Call your doctor if bleeding becomes heavier than the heaviest part of your period. * Check your temperature twice a day for one week. If it goes above 100.4 degrees Fahrenheit (38.0 Celsius), notify your doctor. * Call your doctor's office for an appointment for 6 weeks after your surgery. FOLLOW-UP VISIT: Call your doctor's office for an appointment for 6 weeks after your surgery. Diet Recommendations Recommended Home Diet: resume previous diet Procedures Procedures Performed: Hysteroscopy Dilation Curettage Pending Studies Studies pending at discharge: yes List of pending studies: pathology Medical Emergencies . Who to Call and When: Medical Emergencies: If at any time you feel your situation is an emergency, please call 911 immediately. . Non-Emergent Contact Non-Emergency issues call your: Primary Care Provider, [facility] . . "Provider Documentation" section prepared by Odalis Horn. .
[2017-05-16] MEDS: FENTANYL CITRATE INJ 50 MCG/1 ML 2 ML VIAL IV PRN ×4 (08:35→08:53)
[2017-05-16 09:15] VITALS: BP 112/70; PULSE 80; TEMP 37; O2SAT 96
--- NOTE | 2017-05-16 09:44 | OPERATIVE REPORT ---
DATE OF OPERATION: 05/16/2017 PREOPERATIVE DIAGNOSIS: Thickened endometrium. POSTOPERATIVE DIAGNOSIS: Same. INDICATIONS FOR PROCEDURE: The patient is a 42-year-old G3, P2 who has history of unpredictable irregular menses. Ultrasound shows a thickened lining, cannot rule out polyp. Since the patient history warranted sampling, she elected to undergo D&C for both sampling and possible therapeutic value of removal of polyp concurrently. PROCEDURES PERFORMED: Hysteroscopy and dilation and curettage. SURGEON: Odalis Horn DO. KNURLING MACHINE OPERATOR: None. ESTIMATED BLOOD LOSS: 10 mL. FINDINGS: Thickened endometrial lining, no polyps noted. Bilateral tubal ostia seen. FLUIDS: 800 mL. SPECIMENS: Endometrial curettings. DRAINS: Bladder emptied prior to procedure 400 mL, clear yellow. ANESTHESIA: General. COMPLICATIONS: None. DISPOSITION: Stable and good to recovery area. FLUID DEFICIT: Aquilux machine, 45 mL. DESCRIPTION OF PROCEDURE: The patient was seen in the preoperative holding area where risks, benefits, alternatives to surgery were reviewed. She elected to proceed with the case. Informed consent had been previously obtained in the office under no duress. All questions were answered. The patient was taken to the operating room where general anesthesia was administered. She was prepared and draped in the usual sterile fashion with feet in candy cane stirrups in the dorsal lithotomy position. A timeout was confirmed. Her bladder was drained. A weighted speculum was placed in the vagina. The cervix was visualized and grasped on its anterior lip with a single tooth tenaculum. The cervix was gently dilated to admit a hysteroscope. The hysteroscope was inserted and the above noted findings were seen. The hysteroscope was withdrawn and a gentle curettage was undertaken with a sharp curette. All curettings were sent to pathology. All instruments were removed from the vagina. Excellent hemostasis was observed. The patient was awoken from anesthesia and was taken to the recovery area in stable and good condition. Instrument, sponge and needle counts were correct at the conclusion of the case, x2. I attest to the content of the Intraoperative Record and any orders documented therein. Any exception s are noted below.
[2017-05-16 09:49] VITALS: BP 108/57; PULSE 77; O2SAT 97
[2017-05-16 10:15] VITALS: BP 106/57; PULSE 80; TEMP 36.9; O2SAT 97
== END | disposition home or self-care (01) ==
LOC: C.ACU 05:37
PROVIDERS: ATTEND Obstetrics & Gynecology
DX: N85.00 Endometrial hyperplasia, unspecified (principal); N92.6 Irregular menstruation, unspecified; R93.8 Abnormal findings on diagnostic imaging of other specified body structures; I10 Essential (primary) hypertension; Z82.61 Family history of arthritis; Z82.3 Family history of stroke; Z83.3 Family history of diabetes mellitus; Z82.49 Family history of ischemic heart disease and other diseases of the circulatory system; Z80.9 Family history of malignant neoplasm, unspecified; Z79.899 Other long term (current) drug therapy; Z98.890 Other specified postprocedural states

== ENCOUNTER 2025-01-11 08:50 | Observation (INO) ==
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
[2025-01-11] MEDS: KETOROLAC TROMETHAMINE 15 MG/ML VIAL IV ONE (09:19)
[2025-01-11 09:40] LABS: Hematocrit (blood only) 38.6 % (37.0-47.0); Hemoglobin 12.7 g/dl (12.0-16.0); Immature Granulocytes # (auto) 0.01 K/uL (0.01-0.20); Immature Granulocytes % (auto) 0.2 %; Mean Corpuscular Hemoglobin 28.1 pg (25.0-34.0); Mean Corpuscular Volume 85.4 fL (80.0-100.0); Platelet Count 276 K/uL (130-400); RDW Standard Deviation 43.4 fL (36.4-46.3); Red Blood Count 4.52 M/uL (4.20-5.40); White Blood Count 6.06 K/ul (4.8-10.8)
[2025-01-11 10:00] LABS: Pregnancy Test, Serum Negative (Negative)
[2025-01-11 10:04] LABS: Alanine Aminotransferase 17.0 U/L (7-52); Albumin Globulin Ratio 1.5 (0.9-2); Albumin Level 4.8 gm/dl (3.4-5.0); Alkaline Phosphatase 73.0 U/L (34-104); Anion Gap 7.0 (3-11); Bilirubin,Total 0.4 mg/dl (0.2-1.0); Blood Urea Nitrogen 17.0 mg/dl (6-23); Calcium 9.4 mg/dl (8.6-10.3); Carbon Dioxide 28.0 mmol/L (21-32); Chloride 105.0 mmol/L (98-107); Creatinine Clr Calc Pharmacy 97.7 ml/min; Globulin 3.1 gm/dl (2.5-4.0); Glucose 91.0 mg/dl (70-99(Fasting)); Potassium 4.0 mmol/L (3.5-5.1); Sodium 140.0 mmol/L (136-145); Total Protein 7.9 gm/dl (6.0-8.3)
[2025-01-11] MEDS: OPTIRAY 320 100ml IV ONE (11:52)
--- NOTE | 2025-01-11 12:50 | CT Scan Report ---
CT SCAN OF THE NECK WITH IV CONTRAST CLINICAL HISTORY: Right-sided neck pain and swelling COMPARISON STUDY: Cervical spine CT dated 08/20/2016 TECHNIQUE: Following the IV administration of 94 cc of Optiray 320, CT scan of the soft tissues of th e neck was performed from the skull base to the upper chest. Images are reviewed in the axial, sagitt al, and coronal planes. IV contrast was administered without complication. A dose lowering techniqu e was utilized adhering to the principles of ALARA. CT DOSE: 443.92 mGy.cm FINDINGS: Soft tissues: There is mild infiltration of the deep soft tissues in the anterior right mid to upper neck. This is greatest below the right angle of the mandible. No fluid collection is seen to suggest abscess. There is no significant periodontal disease identified. Pharynx: The pharyngeal soft tissues are normal as imaged. The pharyngeal airway is widely patent. Th ere is no evidence of mass lesion. The vocal cords are symmetric. The parapharyngeal fat is well main tained. The prevertebral/retropharyngeal soft tissues are within normal limits. The epiglottis is nor mal. Lymphadenopathy: There are prominent cervical chain lymph nodes which are not pathologically enlarged by size criteria. A left cervical chain node on image #227 measures 1.3 x 1.0 cm. There are prominen t submental and 7 nuclear lymph nodes which measure up to 7 mm. Thyroid: Normal in size and attenuation. Salivary glands: The parotid and submandibular glands are within normal limits. Brain parenchyma: The visualized brain parenchyma at the skull base is normal in appearance. Vascular structures: The carotid arteries and jugular veins are patent bilaterally. Skeletal structures: Imaged portions of the calvarium at the skull base are within normal limits. The cervical spine appears intact. Orbits: The bony orbits are intact. Orbital contents are normal as imaged. Sinuses and mastoids: There is evidence of previous paranasal sinus surgery. A 2 cm retention cyst is noted in the right maxillary antrum. Mild mucosal thickening is noted in the left frontal sinus. The re is trace mucosal thickening in right sphenoid sinus. The mastoid air cells are well pneumatized. C erumen is noted in the right external auditory canal. Lung apices: Visualized apical lung parenchyma is clear. IMPRESSION: 1. Findings suggest cellulitis involving the deep soft tissues in the anterior mid to upper neck, gre atest below the angle of the mandible. Correlate clinically. 2. No fluid collection is seen to suggest abscess. 3. No significant periodontal disease is seen. 4. The pharyngeal soft tissues are normal as visualized. ACT 112: Negative or not required by law. Electronically signed by: Raudel Briscoe M.D. 01/11/2025 12:48 PM
[2025-01-11] MEDS ORDERED: AMPICILLIN/SULBACTAM SOD 1,500 MG/100 ML BAG IV STA (13:28)
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
[2025-01-11] MEDS: AMPICILLIN/SULBACTAM SOD 3,000 MG/100 ML BAG IV STA (14:25)
[2025-01-11] MEDS: KETOROLAC TROMETHAMINE 15 MG/ML VIAL IV PRN (14:25)
[2025-01-11] MEDS: HEPARIN SOD 5,000 UNIT/0.5 ML VIAL SQ SCH (16:48)
--- NOTE | 2025-01-11 17:00 | Infectious Disease Consult ---
Date of Consultation January 11, 2025 Assessment & Plan (1) Cellulitis, neck: (2) Chronic sinusitis, unspecified: Plan This is a 49-year-old female with a past medical history of chronic recurrent sinusitis status post FESS, eosinophilic esophagitis,facial trauma with fractures in 2014, anxiety/depression, hypertension presents to the ED on 01/11 with a 1 day history of a painful lump on the bottom of right jaw. 2 days Prior she noted right sided neck pain at the angle of the/mandibular region and right anterior neck. She endorsed fevers. She had a root canal 7 years ago. No recent dental procedures, trauma to the face, open wounds. No recent shingles. Notes some soreness and numbness and swelling in the neck area. Denies any trouble swallowing. Per ED providers exam, "mild right sided anterior cervical lymphadenopathy noted. Mild induration to palpation of the right anterior/superior neck region" On admission, temperature 36, pulse 82, RR 18, BP 158/85. On room air. Labs: WBC 6, BUN 17, creatinine 0.66. CT soft tissue neckthere is mild infiltration of the deep soft tissue in the anterior right mid to upper neck. No fluid collection to suggest abscess. Findings suggest cellulitis involving the deep soft tissues in the anterior mid to upper neck, greatest below the angle of the mandible. No significant periodental disease. Left pharyngeal soft tissue are normal. She was started on Unasyn. ID consulted for neck cellulitis. An E consult without video evaluation completed as video/camera is not working today . Micro None Antibiotics Unasyn 01/11current # Neck cellulitis # Recurrent chronic sinusitis, status post FESS, septoplasty ( 2011) # History of facial trauma with fractures in 2014 Discussion Organisms of concern for cellulitis include skin billy such as Staphylococcus and streptococcus. Oral cavity does not appear to be involved. No evidence of periodontal disease on imaging. She has no dental complaints. Pharyngeal soft tissue appears normal on imaging. Patient has a history of recurrent sinus infections. No documentation of active sinus issues. Unknown history of MRSA or MDROs. No prior micro data in chart. Since the neck skin /soft tisse seems to be involved, will focus on skin and soft tissue billy. No purulence. She is afebrile and hemodynamically stable without a leukocytosis. Recommendations Discontinued Unasyn Started cefazolin 2 g IV daily Ordered MRSA nares. If nares positive or decompensates start IV vancomycin per pharmacy protocol Monitor cellulitis clinically and adjust antibiotics based on response. If cellulitis improves on cefazolin only, then can transition to cefadroxil 500 mg po bid for 7 days. Thank you for this consult ID will continue to follow, but [facility] will not round or review the chart over the weekend. Call covering provider at [facility] at [phone] Sorto will resume coverage for [facility] on Sunday 01/14. Cherelle Metz MD, MPH Infectious Disease [facility] Consultation Information This patient recommendation is based on a telemedicine consult request which was completed asynchronously through chart review and information provided by the primary physician. The patient was not seen or examined today. The evaluation is consultative in nature and all patient care and treatment decisions can either be accepted or rejected by the patient's primary hospital-based treating physician using their own independent medical judgment for their patient. Central Supply Manager contact information: Please call [facility] Call Center [phone]. (Phone Number For Physician Use Only) Time Spent Reviewing Chart: 31+ minutes History of Present Illness Reason for Consultation: Neck cellulitis Requesting Physician: Aidan Cook MD Attending Physician: Aidan Cook MD History of Present Illness This is a 49-year-old female with a past medical history of chronic recurrent sinusitis status post FESS, eosinophilic esophagitis,facial trauma with fractures in 2014, anxiety/depression, hypertension presents to the ED on 01/11 with a 1 day history of a painful lump on the bottom of right jaw. 2 days Prior she noted right sided neck pain at the angle of the/mandibular region and right anterior neck. She endorsed fevers. She had a root canal 7 years ago. No recent dental procedures, trauma to the face, open wounds. No recent shingles. Notes some soreness and numbness and swelling in the neck area. Denies any trouble swallowing. Per ED providers exam, "mild right sided anterior cervical lymphadenopathy noted. Mild induration to palpation of the right anterior/superior neck region" On admission, temperature 36, pulse 82, RR 18, BP 158/85. On room air. Labs: WBC 6, BUN 17, creatinine 0.66. CT soft tissue neckthere is mild infiltration of the deep soft tissue in the anterior right mid to upper neck. No fluid collection to suggest abscess. Findings suggest cellulitis involving the deep soft tissues in the anterior mid to upper neck, greatest below the angle of the mandible. No significant periodental disease. Left pharyngeal soft tissue are normal. She was started on Unasyn. ID consulted for neck cellulitis. An E consult without video evaluation completed as video/camera is not working today Allergies Allergy/AdvReac Type Severity Reaction Status Date / Time lisinopril Allergy Severe skin Verified 01/11/25 14:18 reaction Aminoglycosides Allergy Mild HIVES Verified 01/11/25 14:18 polymyxin B Allergy Mild HIVES Verified 01/11/25 14:18 prednisone Allergy Unknown THROAT Verified 01/11/25 14:18 SWELLS adhesive tape Allergy Rash Verified 01/11/25 14:18 Home Medications Medication Instructions Recorded Confirmed Type multivitamin 1 tab PO QAM 01/29/19 01/11/25 History magnesium 250 mg tablet 250 mg PO QAM 03/25/22 01/11/25 History losartan 100 mg tablet 100 mg PO QAM 03/02/23 01/11/25 History hydroxyzine HCl 10 mg tablet 10 mg PO HS 03/21/23 01/11/25 History omeprazole 20 mg capsule,delayed 20 mg PO QAM #90 caps 08/20/24 01/11/25 Rx release amlodipine 5 mg tablet 5 mg PO QAM 10/15/24 01/11/25 History risankizumab-rzaa 150 mg/mL 150 mg subcut DIRECTED 10/15/24 01/11/25 History subcutaneous pen injector (Skyrizi) estradiol 0.05 mg/24 hr semiweekly 1 patch transdermal 2XWK 01/11/25 01/11/25 History transdermal patch minoxidil 10 mg tablet 10 mg PO DAILY 01/11/25 01/11/25 History naltrexone 8 mg-bupropion 90 mg 2 tab PO BID 01/11/25 01/11/25 History tablet,extended release (Contrave) progesterone micronized 100 mg 100 mg PO QPM 01/11/25 01/11/25 History capsule sertraline 25 mg tablet 25 mg PO QAM 01/11/25 01/11/25 History Patient History Medical History History of COVID-19 05/2020, spent the day in the [place], fever, headache, nause>no residual symptoms; 02/2022, home test, not hosp; mild symptoms>no residual symptoms Anxiety Eosinophilic esophagitis hx History of gestational diabetes Aspiration into airway 2016 ASPIRATION PNEUMONIA WITH EGD THRU [facility]/DR CHU-TREATED WITH ANTIBIOTICS Hypertension Kai level I melanoma hx Surgical History History of endometrial ablation History of melanoma excision History of esophagogastroduodenoscopy (EGD) last egd 04/2020 [facility] under general anesthesia History of colonoscopy S/P sinus surgery H/O oral surgery H/O section Family History Daughter Eosinophilic esophagitis Other Arthritis Cancer Diabetes Hypertension Stroke Social History Smoking Status: Current some day smoker Tobacco Type: Cigarettes Cigarettes Per Day: only smokes once in awhile; Second Hand Exposure: No; Do You Dip or Chew Tobacco: No; Hx Alcohol Use: No Hx Substance Use: Yes Last Used Substance Other:: remote hx of use Preferred Language: Spanish Communication Ability: Effective Visual Impairment: No Limitations Catcher Helper Required: No Beliefs That Will Affect Care: None Current Living Situation: Spouse and Family Feels Safe at Home: Yes Sunscreen Use: Yes Assistive Devices: None Results & Data Vital Signs (Past 12 Hours) Vital Signs Temp Pulse Pulse Resp BP BP Pulse Ox 01/11/25 16:37 82 18 109/82 96 01/11/25 15:34 70 14 115/78 98 01/11/25 14:40 84 16 109/82 98 01/11/25 12:40 80 16 117/83 97 01/11/25 10:25 85 16 129/83 98 01/11/25 08:53 36.0 C L 99 H 20 158/85 H 100 01/11/25 08:50 18 O2 Del Method 01/11/25 16:37 Room Air 01/11/25 15:34 Room Air 01/11/25 14:40 Room Air 01/11/25 12:40 Room Air 01/11/25 10:25 Room Air 01/11/25 08:53 Room Air 01/11/25 08:50 Laboratory Results 01/11/25 09:15 WBC 6.06 RBC 4.52 Hgb 12.7 Hct 38.6 MCV 85.4 MCH 28.1 MCHC 32.9 RDW Std Deviation 43.4 RDW Coeff of Sherie 13.8 Plt Count 276 MPV 10.3 Immature Gran % (Auto) 0.2 Neut % (Auto) 48.1 Lymph % (Auto) 38.1 [place] % (Auto) 10.4 Eos % (Auto) 2.5 Baso % (Auto) 0.7 Neut # (Auto) 2.92 Lymph # (Auto) 2.31 [place] # (Auto) 0.63 H Eos # (Auto) 0.15 Baso # (Auto) 0.04 Immature Gran # (Auto) 0.01 Sodium 140 Potassium 4.0 Chloride 105 Carbon Dioxide 28 Anion Gap 7 BUN 17 Creatinine 0.66 Est Cr Clr Drug Dosing 97.7 eGFR 107.47 BUN/Creatinine Ratio 25.8 H Glucose 91 Calcium 9.4 Total Bilirubin 0.4 AST 16 ALT 17 Alkaline Phosphatase 73 Total Protein 7.9 Albumin 4.8 Globulin 3.1 Albumin/Globulin Ratio 1.5 HCG, Qual Negative Diagnostic Findings Soft Tissue Neck CT 01/11/25 09:06 CT SCAN OF THE NECK WITH IV CONTRAST CLINICAL HISTORY: Right-sided neck pain and swelling COMPARISON STUDY: Cervical spine CT dated 08/20/2016 TECHNIQUE: Following the IV administration of 94 cc of Optiray 320, CT scan of the soft tissues of the neck was performed from the skull base to the upper chest. Images are reviewed in the axial, sagittal, and coronal planes. IV contrast was administered without complication. A dose lowering technique was utilized adhering to the principles of ALARA. CT DOSE: 443.92 mGy.cm FINDINGS: Soft tissues: There is mild infiltration of the deep soft tissues in the anterior right mid to upper neck. This is greatest below the right angle of the mandible. No fluid collection is seen to suggest abscess. There is no significant periodontal disease identified. Pharynx: The pharyngeal soft tissues are normal as imaged. The pharyngeal airway is widely patent. There is no evidence of mass lesion. The vocal cords are symmetric. The parapharyngeal fat is well maintained. The prevertebral/retropharyngeal soft tissues are within normal limits. The epiglottis is normal. Lymphadenopathy: There are prominent cervical chain lymph nodes which are not pathologically enlarged by size criteria. A left cervical chain node on image #227 measures 1.3 x 1.0 cm. There are prominent submental and 7 nuclear lymph nodes which measure up to 7 mm. Thyroid: Normal in size and attenuation. Salivary glands: The parotid and submandibular glands are within normal limits. Brain parenchyma: The visualized brain parenchyma at the skull base is normal in appearance. Vascular structures: The carotid arteries and jugular veins are patent bilaterally. Skeletal structures: Imaged portions of the calvarium at the skull base are within normal limits. The cervical spine appears intact. Orbits: The bony orbits are intact. Orbital contents are normal as imaged. Sinuses and mastoids: There is evidence of previous paranasal sinus surgery. A 2 cm retention cyst is noted in the right maxillary antrum. Mild mucosal thickening is noted in the left frontal sinus. There is trace mucosal thickening in right sphenoid sinus. The mastoid air cells are well pneumatized. Cerumen is noted in the right external auditory canal. Lung apices: Visualized apical lung parenchyma is clear. IMPRESSION: 1. Findings suggest cellulitis involving the deep soft tissues in the anterior mid to upper neck, greatest below the angle of the mandible. Correlate clinically. 2. No fluid collection is seen to suggest abscess. 3. No significant periodontal disease is seen. 4. The pharyngeal soft tissues are normal as visualized. ACT 112: Negative or not required by law. Electronically signed by: Raudel Briscoe M.D. 01/11/2025 12:48 PM Medications Administered Home Medications Medication Instructions Recorded Confirmed Last Taken multivitamin 1 tab PO QAM 01/29/19 01/11/25 01/11/25 magnesium 250 mg tablet 250 mg PO QAM 03/25/22 01/11/25 01/11/25 losartan 100 mg tablet 100 mg PO QAM 03/02/23 01/11/25 01/11/25 hydroxyzine HCl 10 mg tablet 10 mg PO HS 03/21/23 01/11/25 01/10/25 omeprazole 20 mg capsule,delayed 20 mg PO QAM #90 caps 08/20/24 01/11/25 01/11/25 release amlodipine 5 mg tablet 5 mg PO QAM 10/15/24 01/11/25 01/11/25 risankizumab-rzaa 150 mg/mL 150 mg subcut DIRECTED 10/15/24 01/11/25 01/08/25 subcutaneous pen injector (Susana) estradiol 0.05 mg/24 hr semiweekly 1 patch transdermal 2XWK 01/11/25 01/11/25 01/09/25 transdermal patch minoxidil 10 mg tablet 10 mg PO DAILY 01/11/25 01/11/25 01/11/25 naltrexone 8 mg-bupropion 90 mg 2 tab PO BID 01/11/25 01/11/25 01/11/25 tablet,extended release (Contrave) progesterone micronized 100 mg 100 mg PO QPM 01/11/25 01/11/25 01/10/25 capsule sertraline 25 mg tablet 25 mg PO QAM 01/11/25 01/11/25 01/11/25 Active Medications Generic Name Dose Route Start Last Admin Trade Name Freq PRN Reason Stop Dose Admin Heparin Sodium (Porcine) 5,000 units 01/11/25 15:30 01/11/25 16:48 Heparin Sod 5,000 Unit/0.5 Ml Vial SQ 02/10/25 15:29 5,000 units Q8 ERIN Administration Ketorolac Tromethamine 15 mg 01/11/25 13:28 01/11/25 14:25 Ketorolac Tromethamine 15 Mg/Ml Vial IV 01/16/25 13:27 15 mg Q6H PRN Administration Pain Miscellaneous 1 each 01/11/25 16:00 01/11/25 15:17 Progesterone Micronized [Prometrium] 100 Mg Capsule--Order Awaiting Action N/A 02/10/25 15:59 Not Given QS ERIN
[2025-01-11] MEDS: AMPICILLIN/SULBACTAM SOD 3,000 MG/100 ML BAG IV SCH (20:59)
[2025-01-11] MEDS: MELATONIN 3 MG TAB PO PRN (22:17)
[2025-01-12] MEDS: ACETAMINOPHEN 325 MG TAB PO PRN (04:06)
[2025-01-12 05:05] LABS: Hematocrit (blood only) 33.5 % (37.0-47.0); Hemoglobin 11.4 g/dl (12.0-16.0); Mean Corpuscular Hemoglobin 29.1 pg (25.0-34.0); Mean Corpuscular Volume 85.5 fL (80.0-100.0); Platelet Count 230 K/uL (130-400); RDW Standard Deviation 42.8 fL (36.4-46.3); Red Blood Count 3.92 M/uL (4.20-5.40); White Blood Count 6.96 K/ul (4.8-10.8)
[2025-01-12 05:22] LABS: Anion Gap 6.0 (3-11); Blood Urea Nitrogen 22.0 mg/dl (6-23); Calcium 8.6 mg/dl (8.6-10.3); Carbon Dioxide 26.0 mmol/L (21-32); Chloride 105.0 mmol/L (98-107); Creatinine Clr Calc Pharmacy 100.7 ml/min; Glucose 104.0 mg/dl (70-99(Fasting)); Potassium 3.9 mmol/L (3.5-5.1); Sodium 137.0 mmol/L (136-145)
[2025-01-12 07:11] VITALS: BP 99/81; PULSE 78; RESP 15; TEMP 98.2; O2SAT 99
--- NOTE | 2025-01-12 08:01 | Discharge Summary ---
Discharge Summary Date of Service January 12, 2025 Principal Dx & Hospital Course #1 = Principal Diagnosis (1) Cellulitis, neck: -CT showing findings suggest cellulitis involving the deep soft tissues in the anterior mid to upper neck, greatest below the angle of the mandible -Unaysn -Toradol prn -ID consult -symptoms improved and patient requesting discharge this am -will d/c home on augmentin 875 BID for 7 days (2) Hypertension: -amlodipine -losartan (3) Anxiety: -sertraline -bupropion Plan Heparin SQ for DVT px Admission HPI Per Admitting Provider Pt is a 49 y/o female with pmh of chronic sinusitis, eosinophilic esophagitis, HTN, anxiety, depression, who presents with 1 day history of right lower jaw "bump" with pain and swelling in her neck. Pt states she has had a root canal on her lower right sided 7 years ago and occasionally has food impaction in the back of her jaw. In the ER patient had a CT of her neck which showed cellulitis of her neck, no abscess noted. Pt was started on Unasyn and will be admitted for further treatment with IV antibiotics. Discharge Exam GENERAL APPEARANCE NAD, activity normal for age, well developed/ well nourished, no cyanosis, pallor, or diaphoresis. EYES lids/conjunctiva normal. EARS/NOSE/THROAT Mucous membranes moist, nares normal, lips/teeth normal uvula midline without oral pharyngeal erythema, exudate or swelling TMs normal bilaterally. No lymphangitis/lymphedema. HEAD/NECK normocephalic atraumatic, Right lower mandibular tenderness RESPIRATORY respiratory effort normal, speaks in full sentences, no tripod position, no accessory muscle use. Lungs clear to auscultation without rhonchi, wheezes, rales CARDIAC Regular rate and rhythm, no edema. ABDOMINAL Soft, ND/NT. No evidence of fluid wave. No pulsatile masses on exam, rebound tenderness, Richardson sign or pain over Mcburney's point. MUSCLES/EXTREMITIES No abnormal range of motion, no swelling. SKIN Warm, pink and dry. No rashes, dermatoses, petechiae or lesions. NEUROLOGICAL Speech is clear and appropriate. Normal level of consciousness. Gait and coordination are normal. 5/5 strength in all extremities. PSYCH Normal mood and affect. Judgement/competence is appropriate Discharge Plan Discharge Items Patient Disposition: Home - Self-Care Reason For Visit: NECK CELLULITIS Discharge Diagnosis: neck cellulitis Condition on Discharge: Good Activity: Resume your previous activity Non-emergency contact: Primary Care Provider Call non-emergency contact if: you have any medication questions Follow-up/Referrals: Heydi Chen [Primary Care Provider] - Diet: Regular Addtl Attending Provider Instructions: Follow up with pmd in 1 week Pending Studies at Discharge: No Stand-Alone Forms: My [facility] [employer], Smoking Cessation Medications and DC Order Prescriptions: New amoxicillin-pot clavulanate 875-125 mg tablet 1 tab PO Q12H Qty: 14 0RF Continued multivitamin tablet 1 tab PO QAM hydroxyzine HCl 10 mg tablet 10 mg PO HS magnesium 250 mg tablet 250 mg PO QAM omeprazole 20 mg capsule,delayed release(DR/EC) 20 mg PO QAM Qty: 90 3RF Rx Instructions: TAKE 1 CAPSULE BY MOUTH ONCE A DAY Skyrizi 150 mg/mL pen injector 150 mg subcut DIRECTED Rx Instructions: Every 3 months amlodipine 5 mg tablet 5 mg PO QAM losartan 100 mg tablet 100 mg PO QAM estradiol 0.05 mg/24 hr patch semiweekly 1 patch transdermal 2XWK Rx Instructions: TUE/TUE minoxidil 10 mg Tablet 10 mg PO DAILY sertraline 25 mg tablet 25 mg PO QAM progesterone micronized 100 mg capsule 100 mg PO QPM Contrave 8-90 mg Tablet Extended Release 2 tab PO BID Discharge Orders: Discharge Order (Routine); Ordered 01/12/25 Ordered By: Aidan Cook Admission Data Admit Date/Time: 01/11/25 13:33 Attending Provider: Aidan Cook Admit Provider: Aidan Cook Primary Care Provider: Heydi Chen Other Providers: Aidan Coko; Marixa Sorto; Hailey Mckinney; Caitlin Antony; Cherelle Metz; Adriana Rivera; Kathy Lopez Hospital Stay Data Consultations 01/11/25 13:07 ED Decision to Admit Stat 01/11/25 13:35 Consult Infectious Diseases Routine Diagnostic Imagining Performed 01/11/25 09:06 CT soft tissue neck w con Stat Pending Results Patient Have Any Pending Studies at Discharge: No Discharge Instructions Given to Patient (Per Discharging Provider) Follow up with pmd in 1 week Total Time Total Time Spent Total Time Spent (In Minutes): 50 Coding Level of Care Code 29711 INP/OBS DISCH >30 MIN Diagnoses Cellulitis, neck L03.221 Hypertension I10 Anxiety F41.9
[2025-01-12] MEDS ORDERED: SERTRALINE HCL 100 MG TABLET PO SCH (09:00)
[2025-01-12] MEDS ORDERED: LOSARTAN POTASSIUM 50 MG TAB PO SCH (09:00)
== END 2025-01-12 08:20 | disposition home or self-care (01) | DRG 603 ==
LOC: ED 08:50 → INTOOBSV 13:33 → EDINP 13:33